=== PATIENT | female | born 1980 | race Caucasian/White ===

== ENCOUNTER 2024-12-26 09:05 | Emergency (ER) | payer OTHER ==
[~2024-12-26] VITALS: Ht 154.9 cm; Wt 96.1 kg
[2024-12-26 09:13] VITALS: O2SAT 98
[2024-12-26 09:29] LABS: BASOPHILS % 0.3 % (0.0-2.0); EOSINOPHILS % 0.2 % (0.0-5.0); HEMATOCRIT. 31.3 % (36.0-48.0); HEMOGLOBIN. 10.0 g/dL (12.0-16.0); LYMPHOCYTES % 9.0 % (20.0-50.0); MEAN PLATELET VOLUME 8.8 fl (7.4-10.4); MONOCYTES % 2.3 % (2.0-8.0); NEUTROPHILS % 88.2 % (40.0-76.0); PLATELET 332 x1000/uL (130-400); RED BLOOD CELL COUNT 4.66 mill/uL (4.2-5.4); RED CELL DISTRIBUTION WIDTH 20.7 % (11.6-14.6)
[2024-12-26 09:35] LABS: ADD RBC MORPHOLOGY YES
[2024-12-26 09:47] LABS: CREATININE 0.7 mg/dL (0.6-1.0)
[2024-12-26 09:48] LABS: UREA NITROGEN BLOOD 9 mg/dL (9-23)
[2024-12-26 09:49] LABS: ASPARTATE AMINOTRANSFERASE 21 IU/L (<34)
[2024-12-26 09:50] LABS: BILIRUBIN DIRECT 0.2 mg/dL (<=3.0); BILIRUBIN TOTAL 0.6 mg/dL (0.1-1.0); PROTEIN TOTAL 7.8 g/dL (6.0-8.3)
[2024-12-26 09:59] LABS: HCG SCREEN NEGATIVE
[2024-12-26] MEDS: ONDANSETRON 4MG ODT PO ONE (10:13)
[2024-12-26] MEDS ORDERED: LACTATED RINGERS 1,000 ML IV SCH (10:30)
[2024-12-26 10:47] LABS: PLATELET ESTIMATE NORMAL
[2024-12-26] MEDS: ONDANSETRON HCL 4MG/2ML INJ IV ONE (10:50)
[2024-12-26] MEDS: METOCLOPRAMIDE HCL 10MG/2ML VIAL IV ONE (10:50)
[2024-12-26] MEDS: LACTATED RINGERS 1,000 ML IV SCH (10:54)
[2024-12-26] MEDS ORDERED: METO-293 MT (13:01)
[2024-12-26] MEDS ORDERED: ONDA-239 PO (13:01)
[2024-12-26 13:10] VITALS: BP 130/69; PULSE 72; RESP 12; TEMP 36.9; O2SAT 100
== END 2024-12-26 13:10 | disposition home or self-care (01) ==
LOC: ER 09:05
DX: R11.2 Nausea with vomiting, unspecified (principal); Z98.890 Other specified postprocedural states
CPT/HCPCS: 80076; 80048; 84703; 83690; 85025; 36415; 96361; 96374; 96375; 99284; Q0162; J2765; J2405; Z7610